=== PATIENT | female | born 1945 | race Caucasian/White ===

== ENCOUNTER 2017-12-03 00:18 | Inpatient (IN) ==
[2017-12-03] MEDS ORDERED: Naloxone 0.4 MG/ML INJ IVP PRN ×2 (00:41→00:45)
--- NOTE | 2017-12-03 00:49 | Internal Med History&Physical ---
Date of Encounter: 12/03/17 Time of Encounter: 00:47 Internal Medicine - H&P: HPI Chief complaint: Altered mental status Admitted From: Direct Admit Plans for Post Hospital Care: Home History of present illness: Ms. Nunez is a 72 year old female with history of COPD on 4 L at night, mechanical valve on anticoagulaiton transferred from [place] for acute hypoxic resp failure and altered mental status. History is limited. Patient is cyanotic and mottled upon arrival. faint pulses. Rate is sinus in the 80s. Unable to get O2 sats. Hypoglycemic with glucose in the 20s. Hypothermic as well. I spoke to her (Kwaku) who is at home caring for their disabled grand-daughter. The patient has a son who drives an ambulance/pullman clerk who is on his way to [place] taking a patient. Another daughter had an SD yesterday and is hospitalized. Per her , the patient was lethargic for 3-4 days. Not complaining of much of anything else. No fevers or chills. When she presented to [facility], she was hypoxic and was intubated. She was hypoglycemic. Labs showed acute liver failure and an INR >29. Lactic acidosis of >10. There was hyponaremia, hyperkalemia, CECE. BP there was in the low 100s systolically. In route, EMS reported a drop in her BP and was given a 600 cc bolus. When she arrived we could not get a BP read. I asked for a bolus to be started immediately. Due to her elevated INR, I asked for an IO access. We gave IV dextrose and started a drip. We started levofed. We added two more pressors with her BP barely responding. Throughout this she continued to have a pulse. Her ABG could not be obtained and we could not get an O2 sat to capture due to her cyanosis and hypothermia. She had a VBG at [facility] that showed acidosis. I gave her 6 amps of bicarbs and started a bicarb drip. I also gave 100 mg IV solu-cortef and her BP was still borderline. CXR was done there and here and showed infiltrates. CT chest showed LLL consolidation. CT abdomen and pelvis showed moderate ascites and adrenal stranding that was thought to be due to anasarca or hyper or hypo functioning gland. She was given dextrose there. She was given vitamin K there. She was given vanco and zosyn and IV fluids and sent here Past Med Surg Social Fam HX - Past Medical History Medical history: CHF, COPD, GERD, myocardial infarction, osteoporosis, thyroid disease Psychiatric history: anxiety, depression - Social History Smoking Status: Current every day smoker Smokeless Tobacco Status: No Alcohol use: none Drug use: none Internal Medicine - H&P: Meds Acetaminophen [Tylenol] 650 mg PO Q6HR PRN 12/02/17 [History] Albuterol Sulfate [Ventolin Hfa] 18 gm IH BID 12/02/17 [History] Alendronate Sodium [Binosto] 70 mg PO QWEEK 12/02/17 [History] Amoxicillin/Clavulanate [Augmentin] 500 mg PO BIDWM 12/02/17 [History] Calcium Carbonate [Calcium] 300 mg PO DAILY 12/02/17 [History] Cyanocobalamin (B-12) [Vitamin B12] 1,000 mcg PO DAILY 12/02/17 [History] Guaifenesin [Mucinex] 600 mg PO BID 12/02/17 [History] HYDROcodone/Acet 5/325 mg [[place] 5-325 mg] 1 tab PO Q6H PRN 12/02/17 [History] Levothyroxine [Synthroid] 75 mcg PO 0630 12/02/17 [History] Omeprazole [PriLOSEC] 20 mg PO DAILY 12/02/17 [History] Spironolactone [Aldactone] 25 mg PO DAILY 12/02/17 [History] Tiotropium [Spiriva] 18 mcg IH 0700 12/02/17 [History] Venlafaxine XR (24 HR) [Effexor XR] 75 mg PO DAILY 12/02/17 [History] Warfarin [Coumadin] 3 mg PO 1800 12/02/17 [History] 3 Allergy/AdvReac Type Severity Reaction Status Date / Time morphine Allergy Hives Verified 12/02/17 20:13 ROS unobtainable: due to endotracheal tube, due to mental status All Systems PM: A 10-system review of systems was performed and is negative for pertinent findings except as documented above in the HPI. - Constitutional Exam: GEN: NAD, intubated HEENT: AT, NC, No cyanosis, oral mucosa is moist, No JVD Lymphatics: No lymphadenoapthy Eyes: Extrocular muscles intact, anicteric CVS:RRR. S1, S2, No m/r/g RESP: Diminished breath sounds and coarse throughout. ABD: Soft, NT, distented, +BS EXT: No edema, cyanotic, faint pulses, mottled skin throughout NEURO: Pupils are dilated but equal and reactive, complete neurological exam could not be assessed due to patient being intubated and sedated Internal Med - H&P Results - Labs CBC & Chem 7: 12/03/17 04:00 12/03/17 00:41 - Assessment and plan (1) Goals of care, counseling/discussion Current Visit: Yes Status: Acute Assessment and plan: Spoke to the and son. Son is on his way now from [place]. I explained to them that the patient is critically ill and the possibility of a code and her passing at any point. They want to keep her full code for now. They are aware that she has multi-organ failure and despite multiple pressors maxed out, she is still critically ill. Patient is likely to code and pass. (2) Shock Current Visit: Yes Status: Acute Assessment and plan: septic and possibly hypovolemic/hemorrhagic shock. Patient will be treated for sepsis as below. I worry about an internal bleed/DIC, although was not seen on a CT abd/pelvis. Patient's INR is >29. Platelets 107. She is not responding to IV fluids and multiple pressors. I have ordered for blood transfusion and for FFPs. I am still awaiting a CBC from our system. We called labs multiple times and it is till being run. Hgb at [facility] was 12.8 (3) Septic shock Current Visit: Yes Status: Acute Assessment and plan: Due to HCAP and UTI. Met criteria with lactic acid elevated as well as leukocytosis, tachycardia, tachypnea, and hypoxia. Multiple pressors started and maxed out. Patient is critically ill. IV solu-cortef given. 6 amps of bicabs given. On bicarb drip. IV boluses initiated. (4) Encephalopathy acute Current Visit: No Status: Acute Assessment and plan: Multifactorial with reported hypoglycemia, hypoxemia, liver failure, kidney failure, hyponatremia. CT head with nothing acute. Repeat all labs STAT. Check ABG. Check ammonia level and TSH as those were not check at [facility]. Treat underlying causes as below. (5) Acute respiratory failure with hypoxia Current Visit: No Status: Acute Assessment and plan: Possibly HCAP. c/w vent support. Repeat ABG. Check CXR. c/s the mixing machine tender cork gasket. Nebs (6) HCAP (healthcare-associated pneumonia) Current Visit: No Status: Acute Assessment and plan: Will keep on vanco/zosyn given in [facility]. Check sputum. check urine stre and legionella. f/u on blood cultures collected in [facility]. (7) UTI (urinary tract infection) Current Visit: No Status: Acute Assessment and plan: Zosyn should cover. f/u on cultures. Qualifiers: Urinary tract infection type: site unspecified Hematuria presence: without hematuria Qualified Code(s): N39.0 - Urinary tract infection, site not specified (8) Acute renal failure Current Visit: No Status: Acute Assessment and plan: c/w IV fluids. Avoid nephrotoxins. Repeat labs Qualifiers: Acute renal failure type: unspecified Qualified Code(s): N17.9 - Acute kidney failure, unspecified (9) Acute liver failure Current Visit: No Status: Acute Assessment and plan: Shock liver. INR and LFTs are significantly elevated. check tylenol level. Check hepatitis panel. c/w IV support and pressors. Qualifiers: Hepatic coma status: without hepatic coma Qualified Code(s): K72.00 - Acute and subacute hepatic failure without coma (10) Supratherapeutic INR Current Visit: No Status: Acute Assessment and plan: On coumadin. Patient is in liver failure. No signs of bleeding but abdomen is distended and BP is not responding to IVF and pressors. Will start PRBCs transfusion and FFPs. Unsure why on coumadin. Given Vit K in [facility]. Repeat INR. (11) Lactic acid acidosis Current Visit: No Status: Acute Assessment and plan: Multifactorial with acute liver failure and sever sepsis. Received IV fluids in [facility]. Will continue IV fluids here. Check lactic acid STAT (12) Hyponatremia Current Visit: No Status: Acute Assessment and plan: Likely volume depleted. Will hydrate. Repeat labs now. Check urine sodium and urine osm. (13) Hyperkalemia Current Visit: No Status: Acute Assessment and plan: Due to kidney failure. Multiple bicarb pushes given. Will repeat labs and treat as needed. (14) Elevated troponin Current Visit: No Status: Acute Assessment and plan: Likely demand ischemia. Will get and EKG. Trend cardiac enzymes. Check an echo. (15) DVT prophylaxis Current Visit: No Status: Acute Assessment and plan: SCDs - Time Spent With Patient Critical care time >120 min Total time spent is greater than 50% in coordination of care (as documented) at patient's floor/unit and/or counseling patient:
[2017-12-03] MEDS ORDERED: 0.9 % Sodium Chloride 1,000 ML ONE (03:08)
[2017-12-03] MEDS: 0.9 % Sodium Chloride 1,000 ML IVC SCH ×3 (03:19→05:58)
[2017-12-03] MEDS: Norepinephrine 4 MG in D5% in Water 250 ML IVC SCH ×2 (03:20→05:45)
[2017-12-03] MEDS ORDERED: *HR* Dextrose 50 % in Water (Syg) 50 ML SYRINGE ONE (03:25)
[2017-12-03] MEDS ORDERED: D10% in Water 500 ML IVC ONE (03:26)
[2017-12-03] MEDS ORDERED: *HR* Dextrose 50 % in Water (Syg) 50 ML SYRINGE IVP ONE ×3 (03:28→03:52)
[2017-12-03] MEDS ORDERED: D10% in Water 500 ML IVC SCH (03:30)
[2017-12-03] MEDS ORDERED: Hydrocortisone Sodium Succ 100 MG/2 ML VIAL IVP ONE (03:39)
[2017-12-03] MEDS ORDERED: Hydrocortisone Sodium Succ 100 MG/2 ML VIAL ONE (03:40)
[2017-12-03] MEDS: Phenylephrine 10 MG in D5% in Water 250 ML IVC SCH ×2 (03:50→05:08)
[2017-12-03 04:04] LABS: Acetaminophen 18 mcg/mL (10-20); Alanine Aminotransferase > 500 Units/L (7-52); Albumin 2.5 g/dL (3.5-5.7); Albumin/Globulin Ratio 1.5 (1.1-2.2); Alkaline Phosphatase 108 Units/L (34-104); BUN/Creatinine Ratio 12 (6-26); Bilirubin,Total 2.4 mg/dL (0.3-1.0); Blood Urea Nitrogen 21 mg/dL (8-23); Calcium 8.1 mg/dL (8.6-10.3); Carbon Dioxide 9 mEq/L (23-29); Chloride 97 mEq/L (98-107); Globulin 1.7 g/dL (2.4-3.5); Glucose 178 mg/dL (70-105); Osmolality,Calculated 263 (280-300); Phosphorous 7.6 mg/dL (2.7-4.5); Potassium 5.6 mEq/L (3.5-5.1); Sodium 123 mEq/L (136-145); Total Protein 4.2 g/dL (6.4-8.9); eGFR For African Americans 33 (> 60); eGFR For Non-African Americans 27 (> 60)
[2017-12-03 04:05] LABS: Troponin I 0.27 ng/mL (< 0.04)
[2017-12-03 04:11] LABS: INR > 29.6
[2017-12-03 04:12] LABS: Prothrombin Time > 360.0 Seconds (9.4-12.1)
[2017-12-03 04:14] LABS: Thyroid Stimulating Hormone 3.243 mcIU/mL (0.340-5.600)
[2017-12-03 04:18] LABS: ABG Base Excess -19 mEq/L (-2 to 3); ABG HCO3 10 mEq/L (21-27); ABG Oxygen Saturation 89 % (95-98); ABG PCO2 36 mmHg (35-45); ABG PH 7.06 pH Units (7.32-7.45); ABG PO2 79 mmHg (85-104); ABG TCO2 11 mEq/L (20-26); Blood Gas Modality PRVC; Blood Gas PEEP 8 cm H2O; Blood Gas Respiration Rate 16; Blood Gas VT 400 cc
[2017-12-03 04:21] LABS: Hepatitis A Antibody IgM Nonreactive (Nonreactive); Hepatitis B Core IgM Nonreactive (Nonreactive); Hepatitis B Surface Antigen Nonreactive (Nonreactive); Hepatitis C Virus Antibody Nonreactive (Nonreactive)
[2017-12-03 04:28] LABS: Aspartate Amino Transferase > 3000 Units/L (13-39)
[2017-12-03] MEDS ORDERED: Sodium Bicarbonate 150 MEQ in D5% in Water 1,000 ML IVC SCH (04:30)
[2017-12-03] MEDS: Ipratropium/Albuterol Neb 3 ML IH SCH ×2 (04:39→10:00)
[2017-12-03] MEDS ORDERED: Vasopressin 40 UNIT in D5% in Water 100 ML IV SCH (04:45)
[2017-12-03] MEDS ORDERED: WATER IVC ONE (05:17)
[2017-12-03] MEDS ORDERED: D5 IVC ONE (05:17)
[2017-12-03] MEDS ORDERED: ACETYLCYSTEINE IVC ONE (05:17)
[2017-12-03] MEDS ORDERED: Acetylcysteine 5,800 MG in D5% in Water 1,000 ML IVC ONE (05:17)
[2017-12-03] MEDS ORDERED: 0.9 % Sodium Chloride 250 ML ONE (05:17)
[2017-12-03] MEDS ORDERED: Acetylcysteine 2,900 MG in D5% in Water 500 ML IVC ONE (05:17)
[2017-12-03] MEDS ORDERED: Phenylephrine 20 MG in D5% in Water 500 ML IVC SCH (05:45)
[2017-12-03 05:50] LABS: Salicylate < 2.5 mg/dL (15.0-30.0)
[2017-12-03] MEDS ORDERED: Norepinephrine 8 MG in D5% in Water 500 ML IVC SCH (06:00)
[2017-12-03 06:04] VITALS: BP 58/34
[2017-12-03 06:21] LABS: Fibrinogen 73 mg/dL (169-393)
[2017-12-03 06:31] LABS: Basophils % 0.1 %; Hematocrit 32.1 % (35.3-44.9); Hemoglobin 9.7 g/dL (11.5-15.4); Immature Granulocytes % 1.2 % (0-4); Lymphocytes # 0.6 K/mcL (0.6-4.6); Lymphocytes % 2.8 %; Mean Corpuscular HGB Conc 30.2 g/dL (31.6-35.5); Mean Corpuscular Hemoglobin 32.3 pg (28.0-33.3); Mean Platelet Volume 12.8 fL (9.4-12.4); Monocytes # 1.1 K/mcL (0.0-1.3); Monocytes % 4.9 %; Neutrophils # 19.8 K/mcL (1.6-8.9); Nucleated Red Blood Cells 0.4 /100 WBC (0); Platelet Count 60 K/mcL (140-400)
[2017-12-03 06:33] LABS: Amphetamine Screen,Urine Negative ng/mL (Cutoff=1000); Barbiturate Screen,Urine Negative ng/mL (Cutoff=200); Benzodiazepines Screen,Urine Positive ng/mL (Cutoff=200); Cannabinoid Screen,Urine Negative ng/mL (Cutoff = 50); Cocaine Screen,Urine Negative ng/mL (Cutoff= 300); Opiate Screen,Urine Positive ng/mL (Cutoff=300); Phencyclidine Screen,Urine Negative ng/mL (Cutoff=25)
--- NOTE | 2017-12-03 06:39 | Event Note ---
Date of Encounter: 12/03/17 Time of Encounter: 06:38 Spoke to poison control about Acetaminophen level and explained to them the overall picture. They recommended I treat with Mucomyst and Intralipid.
[2017-12-03] MEDS ORDERED: Hydrocortisone Sodium Succ 100 MG/2 ML VIAL IVP SCH (08:00)
[2017-12-03] MEDS ORDERED: Piperacillin/Tazobactam 3.375 GM in 0.9 % Sodium Chloride Mini Bag 100 ML IVPB SCH (08:00)
[2017-12-03] MEDS ORDERED: Aminoglycoside Consult 1 EACH MC ONE (10:32)
--- NOTE | 2017-12-03 17:55 | Electrocardiograph Report ---
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
--- NOTE | 2017-12-03 19:40 | Death Note ---
Discharge Sum: Summary - Date and Time Date of admission: 12/03/17 03:00 Date of : 12/03/17 Time of : 07:02 - Summary Details: 72 year old female with history of COPD on 4 L at night, mechanical valve on anticoagulaiton transferred from [place] for acute hypoxic resp failure and altered mental status. History was limited. Patient was cyanotic and mottled upon arrival. faint pulses. Rate is sinus in the 80s. Unable to get O2 sats. Hypoglycemic with glucose in the 20s. Hypothermic as well. I spoke to her (Kwaku) who is at home caring for their disabled grand-daughter. The patient has a son who drives an ambulance/assembling fabricator who arrived a few minutes before the patient's . He was delivering a patient to [place] at the time of his mother's arrival here. Another daughter had an SD/valve replaced the day before. Per her , the patient was lethargic for 3-4 days. Not complaining of much of anything else. No fevers or chills. When she presented to [place], she was hypoxic and was intubated. She was hypoglycemic. Labs showed acute liver failure and an INR >29. Lactic acidosis of >10. There was hyponaremia, hyperkalemia, CECE. BP there was in the low 100s systolically. In route, EMS reported a drop in her BP and was given a 600 cc bolus. When she arrived we could not get a BP read. We later were able to get a BP of 50s systolically. I asked for a bolus to be started immediately. Due to her elevated INR, I asked for an IO access. We gave IV dextrose and started a drip. We started levofed. We added 3 more pressors with her BP barely responding. Those pressors were maximized. Throughout this she continued to have a pulse. Her ABG could not be obtained and we could not get an O2 sat to capture due to her cyanosis and hypothermia. She had a VBG at [place] that showed acidosis. Eventually we were able to get an ABG and that showed severe acidosis with PO2 of 79. I gave her 6 amps of bicarbs and started a bicarb drip even before the ABG results. I also gave 100 mg IV solu-cortef and her BP was still borderline. At [place], CXR was done there and here and showed infiltrates. CT chest showed LLL consolidation. CT abdomen and pelvis showed moderate ascites and adrenal stranding that was thought to be due to anasarca or hyper or hypo functioning gland. She was given dextrose there. She was given vitamin K there. She was given vanco and zosyn and IV fluid. Here I continued abx immediately. I started PRBCs, FFPs, and cryopercipitate transfusions as I suspected the patient was in DIC. Fibrinogen came back low eventually. Hgb was about 3 gm less here than at [place]. I spoke to poison control about a Tylenol level of 18 as the patient was taking Vicodin as at home, and they recommended that I start N-acetylcysteine and Intralipid. I ordered those however I believe the patient had passed before they were started. By the time her son made his way to the hospital he was able to see his mother. He was tearful. She started losing a pulse and was not PE arrest. We started chest compressions right away in front of the patient's sons and he stated that we should stop right away. We stopped. He talked to his other family members did confirm that we should not resume chest compressions. The patient eventually passed. Time of was 7:02 AM on 12/03/2017. - Additional Data Confirmation of as documented by pronouncing clinician: no pulse, no respirations, no heart sounds, pupils fixed and dilated Family: at bedside Attending/PCP notified?: Yes Attending physician: Seth Urbina MD Was code activated?: Yes Autopsy requested?: No architectural examiner notified?: Yes Organ bank notified?: Yes Advance directives: Yes Hospice patient?: No Discharge Sum: Diag - PCOD Probable Cause of : Septic shock Discharge Sum: Prov - Provider Primary care physician: PCP NONE Consults: 12/03/17 00:42 Consult to Pulmonology [CONS] Routine Consulting Provider: [facility] Reason for Consult: on vent/critical care Call Completed: No Pronouncing clinician: Emma Coffey
== END 2017-12-03 10:33 | disposition expired | DRG 871 ==
LOC: ICNU 03:00
PROVIDERS: ADMIT Internal Medicine; ATTEND Internal Medicine